=== PATIENT | male | born 1995 | race Two or more races ===

== ENCOUNTER 2024-09-19 19:40 | Inpatient (IN) | payer MEDICAID, OTHER ==
[~2024-09-19] VITALS: Ht 172.7 cm; Wt 90.9 kg
[2024-09-19] MEDS: ONDANSETRON HCL 4 MG/2 ML VIAL IV ONE (19:56)
[2024-09-19] MEDS: SODIUM CHLORIDE 0.9% 2,000 ML IV ONE (19:56)
[2024-09-19 20:22] VITALS: RESP 20; O2SAT 99
[2024-09-19 20:40] LABS: Hematocrit 49.2 % (41.0-53.0); Hemoglobin 17.2 g/dL (13.5-17.5); Mean Corpuscular Hemoglobin 30.6 pg (28.0-32.0); Mean Corpuscular Volume 87.3 fL (80.0-100.0); Nucleated Red Blood Cells % 0.0 %
[2024-09-19 20:49] LABS: Alkaline Phosphatase 93 U/L (46-116); Anion Gap 13 (5-15); BUN/Creatinine Ratio 6.9 (10.0-20.0); Bilirubin, Total 0.8 mg/dL (0.2-1.0); Blood Urea Nitrogen 16 mg/dL (9-23); Carbon Dioxide 26 mmol/L (20-31); Chloride 99 mmol/L (98-107); Sodium 138 mmol/L (136-145)
[2024-09-19 21:06] LABS: Alanine Aminotransferase 109 U/L (7-40); Albumin 6.0 g/dL (3.2-4.8); Calcium 10.8 mg/dL (8.7-10.4); Glucose 186 mg/dL (74-106); Potassium 3.2 mmol/L (3.5-5.1); Total Protein 9.2 g/dL (5.7-8.2)
--- NOTE | 2024-09-19 22:03 | ED.PDOC ---
History of Present Illness HPI Comments Otherwise healthy 29-year-old male who was brought in by EMS today due to complaints of generalized weakness, lethargy and with altered mental status proximally 1/2 hour prior to arrival. Girlfriend states the patient was working outside all day and not hydrating well when after he came home, he started to co mplain of general ill feeling and appeared lethargic. Patient denies any fever nausea or vomiting. Patient was tachycardic at arrival. Chief Complaint: General Weakness Time Seen by MD: 19:41 Reviewed Notes: Nurses Notes, Food Science Technician Notes Allergies: Coded Allergies: NO KNOWN ALLERGIES (Unverified , 09/19/24) Information Source: Patient, Emergency Med Personnel Mode of Arrival: EMS Severity: Moderate Timing: Hours Duration: Since onset Prehospital treatment: Hr Associate Past Medical History PAST MEDICAL HISTORY: Denies Surgical History: Denies all surgeries Family History Family History: Reviewed,noncontributory to illness, No family hx of Cancer, No family hx of DM, No family hx of Heart jericho, No family hx of HTN, No family hx ofKidney jericho, No family hx of Liver jericho, No family hx of Lung jericho, No family hx of Stroke Social History Smoker: Non-Smoker Alcohol: Denies ETOH Use Drugs: Denies Drug Use Lives In: Home Constitutional: reports: fatigue, malaise, sweats, weakness; denies: chills, diaphoresis, fever, others EENTM: denies: blurred vision, double vision, ear bleeding, ear discharge, ear drainage, ear pain, ear ringing, eye pain, eye redness, hearing loss, mouth pain, mouth swelling, nasal discharge, nose bleeding, nose congestion, nose pain, photophobia, tearing, throat pain, throat swelling, voice changes, others Respiratory: denies: cough, hemoptysis, orthopnea, SOB at rest, shortness of breath, SOB with excertion, stridor, wheezing, others Cardiovascular: denies: chest pain, dizzy spells, diaphoresis, Dyspnea on exertion, edema, irregular heart beat, left arm pain, lightheadedness, palpitations, PND, syncope, others Gastrointestinal: denies: abdomen distended, abdominal pain, blood streaked bowels, constipated, diarrhea, dysphagia, difficulty swallowing, hematemesis, melena, nausea, poor appetite, poor fluid intake, rectal bleeding, rectal pain, vomiting, others Genitourinary: denies: burning, dysuria, flank pain, frequency, hematuria, incontinence, penile discharge, penile sore, pain, testicle pain, testicle swelling, urgency, others Neurological: reports: dizziness; denies: fainting, headache, left sided numbness, left sided weakness, numbness, paresthesia, pre-existing deficit, right sided numbness, right sided weakness, seizure, speech problems, tingling, tremors, weakness, others Musculoskeletal: denies: back pain, gout, joint pain, joint swelling, muscle pain, muscle stiffness, neck pain, others Integumetry: denies: bruises, change in color, change in hair/nails, dryness, laceration, lesions, lumps, rash, wounds, others Allergic/Immunocompromised: denies: Difficulty Healing, Frequent Infections, Hives, Itching, others Hematologic/Lymphatic: denies: anemia, blood clots, easy bleeding, easy bruising, swollen glands, others Endocrine: denies: excessive hunger, excessive sweating, excessive thirst, excessive urination, flushing, intolerance to cold, intolerance to heat, unexplained weight gain, unexplained weight loss, others Psychiatric: denies: anxiety, bipolar disorder, depression, hopeless, panic disorder, schizophrenia, sleepless, suicidal, others Physical Exam General Appearance: Moderate Distress (Patient is a moderate distress as he is lethargic and 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 No signs of trauma. Turgor is good. Eyes are glassy and moist.), Normal ENT Inspection, Pharynx Normal, TMs Normal Neck: Full Range of Motion, Non-Tender, Normal, Normal Inspection Respiratory: Chest Non-Tender, Lungs Clear, No Accessory Muscle Use, No Respira tory Distress, Normal Breath Sounds Cardiovascular: No Edema, No JVD, No Murmur, No Gallop, Normal Peripheral Pulses, Regular Rate/Rhythm Breast Exam: Deferred Gastrointestinal: No Organomegaly, Non Tender, No Pulsatile Mass, Normal Bowel Sounds, Soft Genitalia: Deferred Pelvic: Deferred Rectal: Deferred Extremities: No calf tenderness, Normal inspection, No pedal edema Neurologic: Other (Patient is slightly lethargic and slow to respond to questioning) Cerebellar Function: NOT DONE Reflexes: NOT DONE Skin: Dry, Normal Color, Warm Lymphatic: No Adenopathy Was a procedure done? Was a procedure done?: No Differential Dx Considerations may include: Dehydration, sepsis, electrolyte abnormality, urinary tract infection, acute coronary syndrome, pericarditis X-Ray, Labs, Meds, VS Vital Signs Date Time Temp Pulse Resp B/P (MAP) Pulse Ox O2 Delivery O2 Flow Rate FiO2 09/19/24 20:22 20 99 Room Air* 0 21 09/19/24 20:13 99.0 114 19 118/79 94 99.0 09/19/24 20:10 109 Lab Test 09/19/24 20:13 Range/Units White Blood Count 18.8 H 4.4-10.8 10^3/uL Red Blood Count 5.63 4.5-5.90 10^6/uL Hemoglobin 17.2 13.5-17.5 g/dL Hematocrit 49.2 41.0-53.0 % Mean Corpuscular Volume 87.3 80.0-100.0 fL Mean Corpuscular Hemoglobin 30.6 28.0-32.0 pg Mean Corpuscular Hemoglobin Concent 35.0 32.0-36.0 g/dL Red Cell Distribution Width 13.2 11.8-14.3 % Platelet Count 370 140-450 10^3/uL Mean Platelet Volume 7.2 6.9-10.8 fL Neutrophils (%) (Auto) 85.0 H 37.0-80.0 % Lymphocytes (%) (Auto) 6.7 L 10.0-50.0 % Monocytes (%) (Auto) 7.8 0.0-12.0 % Eosinophils (%) (Auto) 0.0 0.0-7.0 % Basophils (%) (Auto) 0.5 0.0-2.0 % Neutrophils # (Auto) 16.0 H 1.6-8.6 10 ^3/uL Lymphocytes # (Auto) 1.3 0.4-5.4 10 ^3/uL Monocytes # (Auto) 1.5 H 0-1.3 10 ^3/uL Eosinophils # (Auto) 0 0-0.8 10 ^3/uL Basophils # (Auto) 0.1 0-0.2 10 ^3/uL Nucleated Red Blood Cells 0.0 % Sodium Level 138 136-145 mmol/L Potassium Level 3.2 L 3.5-5.1 mmol/L Chloride Level 99 98-107 mmol/L Carbon Dioxide Level 26 20-31 mmol/L Anion Gap 13 5-15 Blood Urea Nitrogen 16 9-23 mg/dL Creatinine 2.32 H 0.700-1.30 mg/dL Glomerular Filtration Rate Calc 38 >90 mL/min BUN/Creatinine Ratio 6.9 L 10.0-20.0 Serum Glucose 186 H 74-106 mg/dL Lactic Acid Level 1.6 0.4-2.0 mmol/L Calcium Level 10.8 H 8.7-10.4 mg/dL Total Bilirubin 0.8 0.2-1.0 mg/dL Aspartate Amino Transferase (AST) 43 H 13-40 U/L Alanine Aminotransferase (ALT) 109 H 7-40 U/L Alkaline Phosphatase 93 46-116 U/L Troponin I High Sensitivity < 3 L </=54 ng/L Total Protein 9.2 H 5.7-8.2 g/dL Albumin 6.0 H 3.2-4.8 g/dL Current Medications Medications (Trade) Dose Ordered Sig/Shimon Route Start Time Stop Time Status Last Admin Sodium Chloride 2,000 ml @ 1,000 mls/hr Q2H ONCE IV 09/19/24 19:45 09/19/24 21:44 DC 09/19/24 19:56 Ondansetron HCl (Zofran) 4 mg ONCE ONCE IV 09/19/24 19:45 09/19/24 19:47 DC 09/19/24 19:56 X-Ray, Labs, Meds, VS Comment All studies performed in the ED were evaluated by me personally. Laboratories studies revealed a leukocytosis, transaminitis, hypokalemic state as well as what appears to be in acute renal injury. While cardiac markers were unremarkable. EKG revealed a sinus tachycardia with a rate of 109. Probable left atrial enlargement was noted as well as possible suggestions of an acute pericarditis event. [place] interval 139 and QT interval of 312. Discussed the case with Dr. Eduardo as we both agreed it did not appear that the patient was suffering from pericarditis as he did not have complaints of chest pain nor any history of IV drug use. Patient had several studies were pending at time of this note. Patient will be admitted for his leukocytosis concerns as well as his renal injury. Patient should receive a cardiac consultation as well for evaluation of today's EKG findings. Time of 1ST Reevaluation: 22:01 Reevaluation 1ST: Improved Consultation: PCP, Cardiology Patient Education/Counseling: Diagnosis, Treatment Family Education/Counseling: Diagnosis, Treatment SEPSIS Sepsis Screen Date sepsis recognized/suspect: Sep 19, 2024 Time Sepsis recognized/suspect: 2023 Recent Procedure: No On Antibiotic Therapy: No Respiratory Rate >20: No Heart Rate >90: No Temp<36 C (96.8 F) or >38.3 C: No SBP <90 or MAP <65 mmHG: No New Acute Mental Status Change: No Is the patient on CPAP, BIPAP,: No Physician Orders Heplock Iv (09/19/24 ) Electrocardigram (09/19/24 19:45) Urinalysis (09/19/24 21:50) Blood Culture (09/19/24 21:50) Piperacillin-Tazob 3.375gm (Zosyn 3.375g (09/19/24 22:00) Head Without Contrast (09/19/24 21:50) Ketorolac Injection (Toradol Injection) (09/19/24 22:00) Drug Screen (09/19/24 21:56) Vital Signs Date Time Temp Pulse Resp B/P (MAP) Pulse Ox O2 Delivery O2 Flow Rate FiO2 09/19/24 20:22 20 99 Room Air* 0 21 09/19/24 20:13 99.0 114 19 118/79 94 99.0 09/19/24 20:10 109 Laboratory Tests Test 09/19/24 20:13 Lactic Acid Level 1.6 mmol/L (0.4-2.0) White Blood Count 18.8 10^3/uL (4.4-10.8) H Medications Medications Dose Ordered Sig/Shimon Route Start Time Stop Time Status Last Admin Dose Admin Ondansetron HCl 4 mg ONCE ONCE IV 09/19/24 19:45 09/19/24 19:47 DC 09/19/24 19:56 Sodium Chloride 2,000 ml @ 1,000 mls/hr Q2H ONCE IV 09/19/24 19:45 09/19/24 21:44 DC 09/19/24 19:56 Departure 1 Departure Time of Disposition: 22:01 Impression: Primary Impression: Leukocytosis Additional Impressions: Acute renal injury Hypokalemia Acute coronary syndrome without high troponin Transaminitis Disposition: ADMITTED INPATIENT Condition: Fair Discharged With: Self, Friend Critical Care Note Critical Care Time?: No Stability Stability form required: No Heart Score Heart Score: Heart Score Response (Comments) Value History Slightly Suspicious 0 EKG Repolarization Disturb 1 Age <45 0 Risk Factors No known risk factors 0 Troponin Normal limit 0 Total 1 [facility]URWINDER REYES [facility] Sep 19, 2024 22:03
--- NOTE | 2024-09-19 22:33 | DVH ---
EXAM: CT HEAD WITHOUT CONTRAST INDICATION: Altered mental status TECHNIQUE: CT of the head without intravenous contrast. Radiation Dose : 1. Head: CT Dose: CTDI volume is 58 mGy. Dose-length product is 1151 mGy*cm The dose indicators for CT are the volume Computed Tomography (CT) Dose Index (CTDIvol) and the Dose Length Product (DLP), and are measured in units of mGy and mGy-cm, respectively. These indicators are not patient dose, but values generated from the CT scanner acquisition factors. The report includes radiation exposure data for exposures received during this examination. COMPARISON: None FINDINGS: Brain: No acute hemorrhage, mass effect, or cerebral edema. CSF Spaces: Size and morphology within normal limits. Bones/Soft Tissues: No acute findings. Orbits/Sinuses/Mastoids: Unremarkable as visualized. IMPRESSION: 1. No acute intracranial abnormality. Radiation optimization: All CT scans at this facility use at least one of these dose optimization beni hniques: automated exposure control mA and/or kV adjustment per patient size (includes targeted exam s where dose is matched to clinical indication) or iterative reconstruction.
[2024-09-19] MEDS: POTASSIUM EFFERVESENT TAB 25 MEQ PO ONE (22:39)
[2024-09-19] MEDS: PIPERACILLIN-TAZOB 3.375GM 100 ML IV ONE (22:40)
[2024-09-19] MEDS: KETOROLAC TROMETH 30 MG/ML 1ML VIAL IV ONE (22:40)
[2024-09-20] MEDS ORDERED: ONDANSETRON HCL 4 MG/2 ML VIAL IV PRN (02:45)
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
[2024-09-20] MEDS: SODIUM CHLORIDE 0.9% 1,000 ML IV ONE ×2 (03:38→13:38)
[2024-09-20 06:58] LABS: Alkaline Phosphatase 81 U/L (46-116); Anion Gap 8 (5-15); BUN/Creatinine Ratio 8.9 (10.0-20.0); Blood Urea Nitrogen 21 mg/dL (9-23); Calcium 9.9 mg/dL (8.7-10.4); Carbon Dioxide 29 mmol/L (20-31); Chloride 101 mmol/L (98-107); Magnesium 2.2 mg/dL (1.6-2.6); Potassium 4.2 mmol/L (3.5-5.1); Sodium 138 mmol/L (136-145)
[2024-09-20 06:59] LABS: Bilirubin, Total 1.1 mg/dL (0.2-1.0)
[2024-09-20 07:03] LABS: Alanine Aminotransferase 92 U/L (7-40); Albumin 5.6 g/dL (3.2-4.8); Glucose 150 mg/dL (74-106); Hematocrit 45.8 % (41.0-53.0); Hemoglobin 16.2 g/dL (13.5-17.5); Mean Corpuscular Hemoglobin 31.1 pg (28.0-32.0); Mean Corpuscular Volume 88.1 fL (80.0-100.0); Nucleated Red Blood Cells % 0.1 %; Total Protein 8.5 g/dL (5.7-8.2)
--- NOTE | 2024-09-20 09:51 | DVHPNRES ---
Progress Note Date Seen: Sep 20, 2024 Resident Creating Document: LESLIE FENTON RESIDENT Medical Necessity Reason Pt with a Central, PICC or Fol: No Subjective Review of Systems Patient is a 29-year-old male with no relevant past medical history who presented to the ED with chief complaint of generalized weakness and nausea. 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 states he drove home after, limited memory of the events that transpired. Per the patient, he recalls feeling widespread cramps arms and legs and abdominal pain described as cramping, concentrated in epigastric region and radiating towards the back, with intensity of 9/10, associated to with diaphoresis, without aggravating or relieving factors. per the patient, he became limitedly responsive prompting his to call EMS. He denied fever, chest pain, diarrhea, palpitations, recent consumption of possibly food, contact with sick individuals. On evaluation in the ED, patient was in moderate distress and lethargic, tachycardic, with temperature of 99. Initial labs revealed leukocytosis, transaminitis, hypokalemia, and creatinine of 2.32. Head CT shows no acute intracranial abnormality. was admitted for further workup and follow up. Surgical: Denies Social: Denies drug, alcohol, and tobacco use. 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 Patient seen in the ED. He is AOx4, states that he feels better, however still has some dizziness and abdominal cramping. He is currently tolerating clear liquid diet, however he states he does not feel well enough to advance diet. Patient is still tachycardic and shows signs of dehydration. We will continue giving fluids. Patient is currently not stable for transfer. Review of Systems: Constitutional: Denies weight loss, fever and chills. HEENT: Denies changes in vision and hearing. Respiratory: Denies shortness of breath and cough Cardiovascular: Denies chest discomfort or palpitations GI: Refers abdominal cramping, Denies abdominal distention, diarrhea : Denies dysuria and urinary frequency. Musculoskeletal: denies symptoms Skin: Denies rash and pruritus. Neurological: Refers dizziness, denies headache vision or hearing problems Objective vital signs Vital Sign Date Time Temp Pulse Resp B/P (MAP) Pulse Ox O2 Delivery O2 Flow Rate FiO2 09/20/24 07:06 97.6 76 16 154/91 (112) 99 97.6 09/19/24 20:22 Room Air* 0 21 Total Intake and Output 09/19/24 09/19/24 09/20/24 15:00 23:00 07:00 Intake Total 2000 ml 100 ml Balance 2000 ml 100 ml medications Current Medications Medications Dose Ordered Sig/Shimon Route Start Time Stop Time Status Last Admin Dose Admin Ondansetron HCl 4 mg Q4HP PRN IV 09/20/24 02:45 Pantoprazole Sodium 40 mg DAILY PO 09/20/24 10:00 Examination General: The patient alert and oriented in person place and time. Patient following commands HEENT: Normocephalic, atraumatic, EOM intact, normal reactive pupils, pink conjunctiva, dry mucous membrane Respiratory/pulmonary: Bilateral chest expansion, no pain on palpation of chest wall, Clear lungs bilaterally, vesicular murmurs present in almost all lung ferguson, no associated crackles or wheezes. Cardiovascular: tachycardic, normal rhythm, normal S1 and S2 Abdomen: Abdomen nondistended, no pain to palpation in any of the abdominal quadrants, no palpable masses. Extremities: No deformities, no pain on palpation, there is no peripheral edema present at the lower extremities. Peripheral pulses 3+ radial right, 3+ radials soft. 3+ dorsalis pedis right. 3+ dorsalis pedis left Skin: No rashes or pruritus Neurological: Intact cranial nerves with no focal neurologic deficits laboratory and microbiology Laboratory Tests 09/20/24 06:25 Test 09/20/24 06:25 Range/Units Serum Glucose 150 H 74-106 mg/dL Problem List/Assessment/Plan Problem List/Assessment/Plan Assessment and Plan: Acute metabolic encephalopathy secondary to heat stroke Intractable nausea and vomiting secondary to above - Zofran 4 mg IV q.4 hours p.r.n. - Protonix 40 mg p.o. daily - Clear liquid diet Dehydration secondary to above - Normal saline 1000 mL IV - IV maintenance fluids Rhabdomyolysis, possibly due to above - IV fluids Acute kidney injury likely hemodynamically mediated due to be VMN - Monitor renal function - Avoid nephrotoxic drugs Hypokalemia, resolved - potassium 25 mEq p.o. once DVT prophylaxis: Not indicated Patient is still tachycardic, showing signs of dehydration, and with pain. Currently not stable for transfer. Case discussed with Dr. Hartmann. Goals of care discussed with the patient for 35 minutes. Full code. Plan discussed with: Patient Date of Service: Sep 20, 2024 Billing Provider: SWATI HARTMANN MD Common Visit Codes: [id number] INP/OBS CARE(HIGH) LESLIE FENTON RESIDENT Sep 20, 2024 09:51 SWATI HARTMANN MD Sep 22, 2024 22:20
[2024-09-20 10:39] VITALS: PULSE 84; RESP 16; O2SAT 100
[2024-09-20] MEDS: PANTOPRAZOLE 40 MG TAB PO SCH (10:42)
[2024-09-20] MEDS ORDERED: SODIUM CHLORIDE 0.9% 1,000 ML IV ONE (12:00)
[2024-09-20] MEDS: SODIUM CHLORIDE 0.9% 1,000 ML IV SCH (14:00)
[2024-09-20 17:37] VITALS: BP 118/76; PULSE 73; RESP 17; RESP 18; TEMP 97.9; O2SAT 99
[2024-09-20 20:00] VITALS: RESP 18
[2024-09-20 21:00] VITALS: BP 120/74; PULSE 84; RESP 18; TEMP 98.1; O2SAT 99
[2024-09-21] VITALS (8 sets, daily range): BP systolic 109–173; BP diastolic 63–84; PULSE 64–81; RESP 16–20; TEMP 97.5–97.9; O2SAT 96–98
[2024-09-21 08:10] LABS: Hematocrit 39.6 % (41.0-53.0); Hemoglobin 13.7 g/dL (13.5-17.5); Mean Corpuscular Hemoglobin 30.8 pg (28.0-32.0); Mean Corpuscular Volume 88.7 fL (80.0-100.0); Nucleated Red Blood Cells % 0.0 %
[2024-09-21 08:17] LABS: Chloride 107 mmol/L (98-107); Potassium 3.8 mmol/L (3.5-5.1); Sodium 142 mmol/L (136-145)
[2024-09-21 08:18] LABS: Anion Gap 7 (5-15); Calcium 8.8 mg/dL (8.7-10.4); Carbon Dioxide 28 mmol/L (20-31)
[2024-09-21 08:23] LABS: BUN/Creatinine Ratio 11.1 (10.0-20.0); Blood Urea Nitrogen 15 mg/dL (9-23); Glucose 91 mg/dL (74-106)
--- NOTE | 2024-09-21 13:13 | DVHPNRES ---
Progress Note Date Seen: Sep 21, 2024 Resident Creating Document: LESLIE FENTON RESIDENT Medical Necessity Reason Pt with a Central, PICC or Fol: No Subjective Review of Systems Patient is a 29-year-old male with no relevant past medical history who presented to the ED with chief complaint of generalized weakness and nausea. 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 states he drove home after, limited memory of the events that transpired. Per the patient, he recalls feeling widespread cramps arms and legs and abdominal pain described as cramping, concentrated in epigastric region and radiating towards the back, with intensity of 9/10, associated to with diaphoresis, without aggravating or relieving factors. per the patient, he became limitedly responsive prompting his to call EMS. He denied fever, chest pain, diarrhea, palpitations, recent consumption of possibly food, contact with sick individuals. On evaluation in the ED, patient was in moderate distress and lethargic, tachycardic, with temperature of 99. Initial labs revealed leukocytosis, transaminitis, hypokalemia, and creatinine of 2.32. Head CT shows no acute intracranial abnormality. was admitted for further workup and follow up. On admission, patient stated he was still dizzy and had muscular pain. He was found to be tachycardic and showing signs of dehydration. Follow up labs showed creatinine of 2.36, GFR 37, and CPK 430. He was given a bolus of NS and started on maintenance fluids. Patient seen at bedside. He is AOx4, states that he feels better, muscular pain and abdominal pain have resolved. He tolerated liquid diet, has been able to sleep, and is ambulating with no issue. No adverse events overnight. Vitals have been stable. Follow up labs show improvement of kidney function, how still not within normal range. We will advance his diet. Patient still shows signs of dehydration, we will continue to current management with IV fluids. Possible discharge tomorrow. Objective vital signs Vital Sign Date Time Temp Pulse Resp B/P (MAP) Pulse Ox O2 Delivery O2 Flow Rate FiO2 09/21/24 08:30 97.5 81 18 125/84 (98) 98 97.5 09/21/24 08:00 Room Air* 0 21 Total Intake and Output 09/20/24 09/20/24 09/21/24 15:00 23:00 07:00 Intake Total 1000 ml 825 ml Balance 1000 ml 825 ml medications Current Medications Medications Dose Ordered Sig/Shimon Route Start Time Stop Time Status Last Admin Dose Admin Ondansetron HCl 4 mg Q4HP PRN IV 09/20/24 02:45 Pantoprazole Sodium 40 mg DAILY PO 09/20/24 10:00 09/21/24 08:57 40 MG Sodium Chloride 1,000 ml @ 150 mls/hr Q6H40M IV 09/20/24 14:00 09/21/24 08:57 150 MLS/HR Examination General: The patient alert and oriented in person place and time. Patient following commands HEENT: Normocephalic, atraumatic, EOM intact, normal reactive pupils, pink conjunctiva, dry mucous membrane Respiratory/pulmonary: Bilateral chest expansion, no pain on palpation of chest wall, Clear lungs bilaterally, vesicular murmurs present in almost all lung ferguson, no associated crackles or wheezes. Cardiovascular: Normal RRR, normal S1 and S2 Abdomen: Abdomen nondistended, no pain to palpation in any of the abdominal quadrants, no palpable masses. Extremities: No deformities, no pain on palpation, there is no peripheral edema present at the lower extremities. Peripheral pulses 3+ radial right, 3+ radials soft. 3+ dorsalis pedis right. 3+ dorsalis pedis left Skin: No rashes or pruritus Neurological: Intact cranial nerves with no focal neurologic deficits laboratory and microbiology Laboratory Tests 09/21/24 07:42 Test 09/21/24 07:42 Range/Units Serum Glucose 91 74-106 mg/dL Microbiology Date/Time Source Procedure Growth Status 09/19/24 22:18 Blood Blood Culture - Preliminary NO GROWTH AFTER 24 HOURS OF INCUBATION. Resulted Problem List/Assessment/Plan Problem List/Assessment/Plan Assessment and Plan: Acute metabolic encephalopathy secondary to heat stroke Intractable nausea and vomiting secondary to above - Zofran 4 mg IV q.4 hours p.r.n. - Protonix 40 mg p.o. daily - Clear liquid diet - Regular diet Dehydration secondary to above - Normal saline 1000 mL IV - IV maintenance fluids Rhabdomyolysis, possibly due to above - IV fluids Acute kidney injury likely hemodynamically mediated due to be VMN - Monitor renal function - Avoid nephrotoxic drugs Hypokalemia, resolved - potassium 25 mEq p.o. once Obesity, BMI 30.5 kg/m2 DVT prophylaxis: Not indicated GI prophylaxis: Protonix 40 mg PO Patient is progressing favorably, he still shows signs of dehydration and kidney injury. He will continue on IV fluids. Possible discharge tomorrow. Case discussed with Dr. Batista. Goals of care discussed with the patient for 35 minutes. Full code. Plan discussed with: Patient My Orders My Orders Orders - LESLIE FENTON Procedure Category Date Status Time Urinalysis LAB 09/21/24 Logged 06:38 Regular Diet DIET 09/21/24 Transmitted Lunch Date of Service: Sep 21, 2024 Billing Provider: ABA BATISTA MD Common Visit Codes: [id number] INP/OBS CARE(HIGH) LESLIE FENTON Sep 21, 2024 13:13 ABA BATISTA MD Sep 21, 2024 19:52
[2024-09-22 01:00] VITALS: BP 124/73; PULSE 76; RESP 18; TEMP 97.8; O2SAT 96
[2024-09-22 05:00] VITALS: BP 132/82; PULSE 54; RESP 18; TEMP 97.9; O2SAT 96
[2024-09-22 06:59] LABS: Anion Gap 8 (5-15); Calcium 9.0 mg/dL (8.7-10.4); Carbon Dioxide 25 mmol/L (20-31); Chloride 107 mmol/L (98-107); Sodium 140 mmol/L (136-145)
[2024-09-22 07:05] LABS: BUN/Creatinine Ratio 10.8 (10.0-20.0); Blood Urea Nitrogen 12 mg/dL (9-23)
[2024-09-22 07:06] LABS: Glucose 135 mg/dL (74-106); Potassium 3.5 mmol/L (3.5-5.1)
[2024-09-22 08:00] VITALS: PULSE 76; RESP 18; O2SAT 97
[2024-09-22 09:09] VITALS: BP 131/88; PULSE 76; RESP 18; TEMP 98; O2SAT 97
--- NOTE | 2024-09-22 12:22 | DVHDSRES ---
Discharge Summary Date of Admission Resident Creating Document: PJ GARRETT RESIDENT Sep 20, 2024 at 02:43 Date of Discharge: Sep 22, 2024 Labs/Diagnostic Data: Laboratory Results Test 09/22/24 05:08 09/21/24 07:42 09/20/24 08:06 09/20/24 06:25 Sodium Level 140 mmol/L (136-145) Potassium Level 3.5 mmol/L (3.5-5.1) Chloride Level 107 mmol/L (98-107) Carbon Dioxide Level 25 mmol/L (20-31) Anion Gap 8 (5-15) Blood Urea Nitrogen 12 mg/dL (9-23) Creatinine 1.11 mg/dL (0.700-1.30) Glomerular Filtration Rate Calc 92 mL/min (>90) BUN/Creatinine Ratio 10.8 (10.0-20.0) Serum Glucose 135 mg/dL (74-106) Calcium Level 9.0 mg/dL (8.7-10.4) Creatine Kinase 198 U/L (46-171) White Blood Count 7.9 10^3/uL (4.4-10.8) Red Blood Count 4.46 10^6/uL (4.5-5.90) Hemoglobin 13.7 g/dL (13.5-17.5) Hematocrit 39.6 % (41.0-53.0) Mean Corpuscular Volume 88.7 fL (80.0-100.0) Mean Corpuscular Hemoglobin 30.8 pg (28.0-32.0) Mean Corpuscular Hemoglobin Concent 34.7 g/dL (32.0-36.0) Red Cell Distribution Width 13.1 % (11.8-14.3) Platelet Count 276 10^3/uL (140-450) Mean Platelet Volume 6.9 fL (6.9-10.8) Neutrophils (%) (Auto) 73.2 % (37.0-80.0) Lymphocytes (%) (Auto) 18.7 % (10.0-50.0) Monocytes (%) (Auto) 7.4 % (0.0-12.0) Eosinophils (%) (Auto) 0.6 % (0.0-7.0) Basophils (%) (Auto) 0.1 % (0.0-2.0) Neutrophils # (Auto) 5.8 10 ^3/uL (1.6-8.6) Lymphocytes # (Auto) 1.5 10 ^3/uL (0.4-5.4) Monocytes # (Auto) 0.6 10 ^3/uL (0-1.3) Eosinophils # (Auto) 0 10 ^3/uL (0-0.8) Basophils # (Auto) 0 10 ^3/uL (0-0.2) Nucleated Red Blood Cells 0.0 % Urine Osmolality 666 mOsm/kg Magnesium Level 2.2 mg/dL (1.6-2.6) Total Bilirubin 1.1 mg/dL (0.2-1.0) Aspartate Amino Transferase (AST) 35 U/L (13-40) Alanine Aminotransferase (ALT) 92 U/L (7-40) Alkaline Phosphatase 81 U/L (46-116) Ammonia < 10 umol/L (11-32) Total Protein 8.5 g/dL (5.7-8.2) Albumin 5.6 g/dL (3.2-4.8) Test 09/19/24 20:13 Lactic Acid Level 1.6 mmol/L (0.4-2.0) Troponin I High Sensitivity < 3 ng/L (</=54) Other Laboratory Tests 09/22/24 05:08 09/21/24 07:42 Brief Hx & Hospital Course: The patient is a 29-year-old male with no significant past medical history who presented to the emergency department with generalized weakness, nausea, and over ten episodes of vomiting. 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 He experienced severe cramping pain in the epigastric region radiating to the back, associated with diaphoresis and altered responsiveness, prompting EMS activation by his . On arrival to the ED, the patient was lethargic, tachycardic, and in moderate distress. Initial labs revealed leukocytosis, transaminitis, hypokalemia, elevated creatinine (2.32), and signs of dehydration. Head CT was unremarkable. He was admitted for further evaluation and management. During hospitalization, the patient remained tachycardic and dehydrated, with worsening renal function (creatinine 2.36, GFR 37) and elevated CPK (430), consistent with rhabdomyolysis. He was treated with IV fluids, electrolyte repletion, and supportive care. Nausea and vomiting were managed with Zofran and Protonix. His diet was gradually advanced from clear liquids to regular as tolerated. The patient showed clinical improvement with resolution of muscular and abdominal pain, stable vital signs, and improved renal function. He remained alert and oriented, ambulating without difficulty, and tolerating oral intake. No adverse events. Continued IV fluid therapy was planned due to persistent signs of dehydration. On the day of discharge, patient appeared well and had stable vital signs, was able to tolerate oral intake and reported significant improvement in symptoms from prior. His hospital course was uncomplicated. General Appearance: Cooperative. Well developed. Well nourished. NAD Head Exam: Normal inspection Neck Exam: Normal inspection. Non-tender. Normal alignment Pulmonary/Respiratory: Chest non-tender. Clear bilateral breath sounds, no crackles, no wheezing. Cardiovascular/Chest: Regular rate and rhythm. No murmurs. No JVD. Peripheral Pulses: 2+ Radial (R). 2+ Radial (L). 2+ Pedal (R). 2+ Pedal (L) Abdominal Exam: Normal bowel sounds. Soft. normal abdomen, no visible veins, Nontender. No hepatospenomegaly. No masses Ankle Exam: Negative ankle edema Neuro/Mental Status: A&O x4. Coherent. Thoughts/Psych: Normal thought pattern. Appropriate mood and affect. Good judgement and insight Skin Exam: Normal inspection. Normal color. Warm. Dry Operations or Procedures EXAM: CT HEAD WITHOUT CONTRAST INDICATION: Altered mental status TECHNIQUE: CT of the head without intravenous contrast. Radiation Dose : 1. Head: CT Dose: CTDI volume is 58 mGy. Dose-length product is 1151 mGy*cm The dose indicators for CT are the volume Computed Tomography (CT) Dose Index (CTDIvol) and the Dose Length Product (DLP), and are measured in units of mGy and mGy-cm, respectively. These indicators are not patient dose, but values generated from the CT scanner acquisition factors. The report includes radiation exposure data for exposures received during this examination. COMPARISON: None FINDINGS: Brain: No acute hemorrhage, mass effect, or cerebral edema. CSF Spaces: Size and morphology within normal limits. Bones/Soft Tissues: No acute findings. Orbits/Sinuses/Mastoids: Unremarkable as visualized. IMPRESSION: 1. No acute intracranial abnormality. Radiation optimization: All CT scans at this facility use at least one of these dose optimization techniques: automated exposure control mA and/or kV adjustment per patient size (includes targeted exams where dose is matched to clinical indication) or iterative reconstruction. Condition at Discharge: Good Final Diagnosis/Problems List Acute metabolic encephalopathy secondary to heat stroke Intractable nausea and vomiting secondary to above Dehydration secondary to above Rhabdomyolysis, possibly due to above Acute kidney injury likely hemodynamically mediated due to be VMN Hypokalemia, resolved Obesity, BMI 30.5 kg/m2 Discharge Disposition: Home Discharge Instruct/Medications Diet: Regular, See Comment Diet comment: Please increase hydration Activity: No Restrictions, As Tolerated Follow Up/Referral: Please follow up with PCP in 1-2 weeks Medications: Continue home medications No Active Prescriptions or Reported Meds Discharge Statement: "Patient was advised to return to the ER or call 911 if any headaches, dizziness, shortness of breath, chest pain, abdominal pain, bleeding, fevers, or worsening of medical condition. Patient was counseled about treatment plan, medications, possible side effects, patientverbalized understanding. All questions were answered to the best of my ability. This discharge took greater then 30 minutes in planning, reviewing documentation, counseling the patient, and discussing with other team members." ASSESSMENT ASSESSMENT Assessment Acute metabolic encephalopathy secondary to heat stroke Intractable nausea and vomiting secondary to above Dehydration secondary to above Rhabdomyolysis, possibly due to above Acute kidney injury likely hemodynamically mediated due to be VMN Hypokalemia, resolved Obesity, BMI 30.5 kg/m2 Date of Service: Sep 22, 2024 Billing Provider: ABA COLLAZO MD Common Visit Codes: [id number]/[id number] DISCH DAY >30min PJ GARRETT Sep 22, 2024 12:22 ABA COLLAZO MD Sep 22, 2024 17:56
[2024-09-22 13:15] VITALS: TEMP 36.7
[2024-09-22 13:24] VITALS: BP 130/87; PULSE 62; RESP 16; TEMP 98.4; O2SAT 95
--- NOTE | 2024-09-23 14:34 | ECG ---
[facility] Test Date: 2024-09-19 Test Time: 20:10:25 Pat Name: JACQUELINE MCKEON Department: ED Room: 0251 B Gender: M [employer] Analyst: grazyna : 1995 Requested By: GURWINDER REYES Order Number: [id number] Reading MD: Celso Mckeon Measurements Intervals [place] Rate: 109 P: 59 TX: 139 QRS: 60 QRSD: 78 T: 42 QT: 312 QTc: 421 Interpretive Statements Sinus tachycardia Probable left atrial enlargement ST elevation suggests acute pericarditis Electronically Signed On 09-23-2024 18:12:17 PDT by Celso Mckeon Please click the below link to view image of tracing.
== END 2024-09-22 14:30 | disposition home or self-care (01) | DRG 815 ==
LOC: ER 19:40 → EDBD 19:40 → OVERFLOW 09-20 02:43 → EAST 09-20 17:01
PROVIDERS: ADMIT Internal Medicine Geriatric Medicine; ATTEND Internal Medicine Geriatric Medicine
DX: T67.01XA Heatstroke and sunstroke, initial encounter (principal); N17.0 Acute kidney failure with tubular necrosis; G93.41 Metabolic encephalopathy; E87.6 Hypokalemia; E86.0 Dehydration; E66.9 Obesity, unspecified; M62.82 Rhabdomyolysis; D72.829 Elevated white blood cell count, unspecified; I24.9 Acute ischemic heart disease, unspecified; R74.01 Elevation of levels of liver transaminase levels; Z68.30 Body mass index [BMI] 30.0-30.9, adult; Z79.899 Other long term (current) drug therapy; Z82.49 Family history of ischemic heart disease and other diseases of the circulatory system; X58.XXXA Exposure to other specified factors, initial encounter; Y93.89 Activity, other specified; Y92.89 Other specified places as the place of occurrence of the external cause; Y99.8 Other external cause status
CPT/HCPCS: 36415; 70450; 80048; 80053; 82140; 82550; 83605; 83735; 83935; 84484; 85025; 87040; 93005; 96361; 96374; G0378; J1885; J2405; J2543